=== PATIENT | female | born 1995 | race Caucasian/White ===

== ENCOUNTER 2017-05-22 21:53 | Emergency (ER) | payer OTHER ==
[~2017-05-22] VITALS: Ht 162.6 cm; Wt 81.4 kg
[2017-05-22] MEDS ORDERED: LEXAPRO 10MG10 MG PO (22:03)
[2017-05-22] MEDS ORDERED: TRI-SPRINTEC 281 TAB (22:04)
[2017-05-22] MEDS ORDERED: XANAX .25M0.25 MG/TA PO (22:04)
[2017-05-22] MEDS ORDERED: VYVANSE50 MG PO (22:04)
[2017-05-22 22:26] VITALS: TEMP 98
[2017-05-22] MEDS ORDERED: CEPHALEXIN500 M1 PO (22:43)
[2017-05-22 23:09] VITALS: BP 111/69; PULSE 91
== END 2017-05-22 23:09 | disposition home or self-care (01) ==
LOC: COL.ER 21:53
DX: S80.862A Insect bite (nonvenomous), left lower leg, initial encounter (principal); Z90.89 Acquired absence of other organs; Z23 Encounter for immunization; W57.XXXA Bitten or stung by nonvenomous insect and other nonvenomous arthropods, initial encounter

== ENCOUNTER 2018-12-07 17:36 | Emergency (ER) | payer OTHER ==
[~2018-12-07] VITALS: Ht 160 cm; Wt 81.8 kg
[~2018-12-07 17:36] MED LIST: CEPHALEXIN500 M1 PO; LEXAPRO 10MG10 MG PO; TRI-SPRINTEC 281 TAB; VYVANSE50 MG PO; XANAX .25M0.25 MG/TA PO
[2018-12-07 17:44] VITALS: BP 151/75; TEMP 98.8
[2018-12-07 19:57] VITALS: PULSE 70
== END 2018-12-07 19:57 | disposition home or self-care (01) ==
LOC: COL.ER 17:36
DX: S80.12XA Contusion of left lower leg, initial encounter (principal); F41.9 Anxiety disorder, unspecified; F32.9 Major depressive disorder, single episode, unspecified; F90.9 Attention-deficit hyperactivity disorder, unspecified type; W18.09XA Striking against other object with subsequent fall, initial encounter